=== PATIENT | female | born 1995 | race Caucasian/White ===

== ENCOUNTER 2016-07-25 01:55 | Emergency (ER) | payer OTHER ==
[~2016-07-25] VITALS: Ht 165.1 cm; Wt 84.8 kg
[2016-07-25 02:02] VITALS: BP 136/78
--- NOTE | 2016-07-25 03:43 | NUR ---
PT TAKEN TO BED 1
--- NOTE | 2016-07-25 03:48 | NUR ---
21 Y/O HERE C/O ABD PAIN AND SORE THROAT X 1 DAY, WELL N/V/D X 2 DAYS. ER NOTIFIED.
--- NOTE | 2016-07-25 03:59 | NUR ---
Dr. Smith evaluating patient at bedside.
[2016-07-25] MEDS ORDERED: ONDANSETRON 8 MG in NACL 0.9% 50 ML IV PRN (04:05)
[2016-07-25] MEDS ORDERED: MORPHINE SULFATE 4 MG/ML SYR IVP ONE (04:05)
[2016-07-25] MEDS ORDERED: NACL 0.9% 1,000 ML IV ONE ×4 (04:05→09:15)
--- NOTE | 2016-07-25 05:05 | NUR ---
PER ER MD VERBAL ORDERS TO RUN 0.9 NACL BOLUS D/T 84/. PT ALERT AND ORIENTED, PINK. C/O LIGHT HEADANESS. ER MD AWARED OF IT.
--- NOTE | 2016-07-25 06:05 | NUR ---
PT C/O HEADACHE, HR INCREASED TO 116 , NO RESP DISTRESS, ALERT AND ORIENTED X 4, DENIES ANY NAUSEA. ER MD NOTIFIED.
--- NOTE | 2016-07-25 06:31 | NUR ---
PER PT HEADACHE IS BETTER, DENIES FEELING LIGHT HEADACHE ANY MORE. BP 101/60, HR 105, R 20, SPO2 99. ER MD NOTIFIED.
[2016-07-25] MEDS ORDERED: KETOROLAC 30 MG/ML VIAL IVP ONE ×2 (07:00→09:15)
[2016-07-25] MEDS ORDERED: ONDANSETRON 4 MG/2 ML VIAL IVP ONE ×2 (07:05→09:15)
--- NOTE | 2016-07-25 07:22 | NUR ---
Pt report given to LOIDA HORNER. Transfer of care at this time.
--- NOTE | 2016-07-25 08:18 | NUR ---
PT AT CT SCAN
--- NOTE | 2016-07-25 08:23 | NUR ---
PT STABLE, BACK FROM CT
--- NOTE | 2016-07-25 10:26 | NUR ---
Patient discharged with v/s stable. Written and verbal after care instructions given and explained. Patient alert, oriented and verbalized understanding of instructions. Ambulatory with steady gait. All questions addressed prior to discharge. ID band removed. Patient advised to follow up with PMD. Rx of ZOFRAN,NAPROSYN, AND LOMOTIL given. Patient educated on indication of medication including possible reaction and side effects. Opportunity to ask questions provided and answered.
[2016-07-25 10:27] VITALS: BP 96/58
== END 2016-07-25 10:26 | disposition home or self-care (01) ==
LOC: MED 01:55
DX: N83.202 Unspecified ovarian cyst, left side (principal); N83.201 Unspecified ovarian cyst, right side; R11.2 Nausea with vomiting, unspecified; R19.7 Diarrhea, unspecified
CPT/HCPCS: 36415; 74177; 80048; 80076; 81001; 81025; 83605; 83690; 85025; 85610; 85730; 87040; 87086; 96361; 96374; 96375; 96376; 99285; J1885; J2270; J2405; J7030; Q9967

== ENCOUNTER 2016-07-31 06:27 | Emergency (ER) | payer OTHER ==
[~2016-07-31] VITALS: Ht 165.1 cm; Wt 85.7 kg
[2016-07-31 06:31] VITALS: BP 133/86
--- NOTE | 2016-07-31 06:41 | NUR ---
AMBULATED TO ER BED 6
--- NOTE | 2016-07-31 06:45 | NUR ---
21Y F BIB SELF C/O SWOLLEN THROAT, BILAT EAR PAIN, DIFFICULTY BREATHING X 5 DAYS . PT DENIES N/V/D; SKIN IS PINK/WARM/DRY; AAOX4 WITH EVEN AND STEADY GAIT; LUNGS CLEAR BL; HR EVEN AND REGULAR; PT DENIES ANY FEVER, CP, SOB, OR COUGH AT THIS TIME; PATIENT STATES PAIN OF 8/10 AT THIS TIME; VSS; PATIENT POSITIONED FOR COMFORT; HOB ELEVATED; BEDRAILS UP X2; BED DOWN. ER MD MADE AWARE OF PT STATUS.
[2016-07-31] MEDS ORDERED: KETOROLAC 30 MG/ML VIAL IM ONE (07:05)
[2016-07-31] MEDS ORDERED: DEXAMETHASONE 4 MG/ML VIAL PO ONE (07:05)
--- NOTE | 2016-07-31 07:06 | NUR ---
Pt report given to SIRI MARISCAL. Transfer of care at this time.
[2016-07-31 07:24] VITALS: BP 128/74
--- NOTE | 2016-07-31 07:25 | NUR ---
Patient discharged with v/s stable. Written and verbal after care instructions given and explained. Patient alert, oriented and verbalized understanding of instructions. Ambulatory with steady gait. All questions addressed prior to discharge. ID band removed. Patient advised to follow up with PMD. Rx of AZITHROMYCIN, MOTRIN AND PROMATHIZINE WITH CODEINE given. Patient educated on indication of medication including possible reaction and side effects. Opportunity to ask questions provided and answered.
== END 2016-07-31 07:50 | disposition home or self-care (01) ==
LOC: MED 06:27
DX: J02.9 Acute pharyngitis, unspecified (principal); J40 Bronchitis, not specified as acute or chronic
CPT/HCPCS: 96372; 99283; J1100; J1885

== ENCOUNTER 2022-06-16 18:57 | Emergency (ER) | payer OTHER ==
[~2022-06-16] VITALS: Ht 165.1 cm; Wt 127.0 kg
[2022-06-16 19:02] VITALS: BP 119/70
--- NOTE | 2022-06-16 19:06 | NUR ---
TO LOBBY A/W BED AMBULATORY
[2022-06-16] MEDS ORDERED: MECLIZINE 25 MG TAB PO ONE (20:45)
[2022-06-16] MEDS ORDERED: KETOROLAC 30 MG/ML VIAL IM ONE (20:45)
[2022-06-16] MEDS ORDERED: ACETAMINOPHEN EXTRA STRENGTH 500 MG TAB PO ONE (20:45)
[2022-06-16 21:07] LABS: BASOPHILS % (AUTO) 0.4 % (0.0-2.0); EOSINOPHILS # (AUTO) 0.3 K/uL (0-0.4); EOSINOPHILS % (AUTO) 2.8 % (0.0-4.0); HEMATOCRIT 37.9 % (36-48); HEMOGLOBIN 12.7 g/dL (12.0-16.0); LYMPHOCYTES # (AUTO) 2.7 K/uL (2.5-16.5); LYMPHOCYTES % (AUTO) 29.3 % (20.5-51.1); MEAN CORPUSCULAR HEMOGLOBIN 28 pg (27-31); MEAN CORPUSCULAR HGB CONC 33 g/dL (33-37); MEAN CORPUSCULAR VOLUME 82.6 fL (80-94); MONOCYTES # (AUTO) 0.6 K/uL (0.8-1.0); MONOCYTES % (AUTO) 6.9 % (1.7-9.3); NEUTROPHILS # (AUTO) 5.6 K/uL (1.8-7.7); NEUTROPHILS % (AUTO) 60.6 % (42.2-75.2); PLATELET COUNT (AUTO) 281 K/uL (140-450); RED BLOOD CELL COUNT(AUTO) 4.58 MIL/uL (4.20-5.40); RED CELL DISTRIBUTION WIDTH 13.6 % (11.6-13.7); WHITE BLOOD COUNT (AUTO) 9.3 K/uL (4.8-10.8)
[2022-06-16 21:28] LABS: ALBUMIN 3.3 g/dL (3.4-5.0); ANION GAP 14.2 (8-16); CARBON DIOXIDE 25.9 mmol/L (21-32); CREATININE 0.6 mg/dL (0.6-1.3); POTASSIUM 4.1 mmol/L (3.5-5.1); TOTAL BILIRUBIN 0.5 mg/dL (0.0-1.0)
--- NOTE | 2022-06-16 22:11 | NUR ---
URINE COLLECTED AND WALKED TO LAB
--- NOTE | 2022-06-16 22:23 | NUR ---
Patient discharged with v/s stable. Written and verbal after care instructions given and explained. Patient verbalized understanding. Ambulatory with steady gait. All questions addressed prior to discharge. Advised to follow up with PMD.
[2022-06-16 22:38] LABS: APPEARANCE,URINE CLEAR (CLEAR); BILIRUBIN,URINE NEGATIVE (NEGATIVE); BLOOD, URINE 3+ (NEGATIVE); COLOR,URINE YELLOW (YELLOW); LEUKOCYTE ESTERASE ,URINE TRACE (NEGATIVE); NITRITE, URINE NEGATIVE (NEGATIVE); UGLUCOSE NEGATIVE (NEGATIVE)
[2022-06-16 23:00] LABS: RBC,URINE 0-5 /HPF (0-5); WBC,URINE 0-5 /HPF (0-5)
== END 2022-06-16 22:23 | disposition home or self-care (01) ==
LOC: MED 18:57
DX: O20.0 Threatened abortion (principal); O26.891 Other specified pregnancy related conditions, first trimester; M54.50 Low back pain, unspecified; J45.909 Unspecified asthma, uncomplicated; Z3A.11 11 weeks gestation of pregnancy
CPT/HCPCS: 36415; 76801; 80053; 81001; 81025; 84702; 85025; 86900; 86901; 87086; 99284; Q0092